=== PATIENT | female | born 1970 | race Caucasian/White ===

== ENCOUNTER → 2024-02-18 09:05 | Outpatient (REF) | payer BC, SELFPAY ==
[2024-02-18 10:25] LABS: % Basophils 0.9 % (0-2); % Immature Granulocytes 0.3 % (0-0.5); % Lymphocytes 24.5 % (20.5-51.1); % Monocytes 5.5 % (1.7-9.3); % Neutrophils 64.8 % (42.2-75.2); Absolute Basophils 0.1 10^3/uL (0-0.2); Absolute Eosinophils 0.3 10^3/uL (0-0.7); Absolute Lymphocytes 1.6 10^3/uL (1.2-3.4); Absolute Monocytes 0.4 10^3/uL (0.1-0.6); Absolute Neutrophils 4.3 10^3/uL (1.4-6.5); Hematocrit 41.5 % (37.0-47.0); Hemoglobin 13.7 g/dL (12.0-16.0); Mean Corpuscular Hgb 30.1 pg (27.0-31.0); Mean Corpuscular Volume 91.2 fL (81.0-99.0); Mean Platelet Volume 10.5 fL (7.4-10.4); Nucleated Red Blood Cells % 0 %; Platelet Count 246 10^3/uL (130-400); Red Blood Cell Count 4.55 10^6/uL (4.20-5.40); Red Cell Dist. Width 12.3 % (11.5-14.5); White Blood Cell Count 6.6 10^3/uL (4.8-10.8)
[2024-02-18 10:55] LABS: ALT (SGPT) 51 U/L (0-35); AST (SGOT) 33 U/L (14-36); Albumin 4.5 g/dl (3.5-5.0); Alkaline Phosphatase 68 U/L (38-126); Blood Urea Nitrogen 18 mg/dl (7-17); C-Reactive Protein < 5.00 mg/L (0.0-10.00); Calcium 9.3 mg/dl (8.4-10.2); Carbon Dioxide 26 mmol/L (22-30); Chloride 103 mmol/L (98-107); Glucose 89 mg/dl (70-99); HDL Cholesterol 99 mg/dl; LDL Cholesterol, Calculated 116 mg/dl; Potassium 4.4 mmol/L (3.5-5.1); Sodium 142 mmol/L (135-145); Total Bilirubin 0.5 mg/dl (0.2-1.3); Total Cholesterol 226 mg/dl (50-199); Total Protein 7.4 g/dl (6.3-8.2); Triglyceride 57 mg/dl (10-149); Very Low Density Lipoprotein 11 mg/dl (0-30); eGFR > 60.00
[2024-02-18 11:24] LABS: Erythrocyte Sed Rate 12 mm/hour (0-20)
[2024-02-18 11:25] LABS: TSH Reflex To Free T4 0.82 uIU/ml (0.47-4.68)
[2024-02-20 00:25] LABS: ANA, IgG Reflex to HEp-2 Detected (None Detected)
[2024-02-20 01:52] LABS: CCP Antibody IgG/IgA 4 Units (0-19)
== END ==
LOC: REG 09:05
PROVIDERS: ATTENDING PHYSICIAN Student in an Organized Health Care Education/Training Program
DX: M25.50 Pain in unspecified joint (principal); M79.10 Myalgia, unspecified site; Z76.89 Persons encountering health services in other specified circumstances; Z00.00 Encounter for general adult medical examination without abnormal findings; R04.0 Epistaxis; R63.5 Abnormal weight gain
CPT/HCPCS: 36415; 73130; 73630; 80053; 80061; 84443; 85025; 85652; 86038; 86140; 86200; 86430; 86618

== ENCOUNTER → 2024-03-08 13:56 | Outpatient (REF) | payer BC, SELFPAY | LOC: WDC 13:56 | PROVIDERS: ATTENDING PHYSICIAN Student in an Organized Health Care Education/Training Program | DX: Z12.31 Encounter for screening mammogram for malignant neoplasm of breast (principal) | CPT/HCPCS: 77063; 77067 ==

== ENCOUNTER → 2024-03-22 10:55 | Outpatient (REF) | payer BC, SELFPAY ==
[2024-03-22 12:15] LABS: Urine Albumin Negative (Neg - Trace); Urine Bilirubin Negative (Negative); Urine Character Clear (Clear); Urine Color Straw; Urine Glucose Negative (Negative); Urine Ketone Negative (Negative); Urine Leukocyte Negative (Negative); Urine Nitrite Negative (Negative); Urine Occult Blood 1+ (Negative); Urine Specific Gravity 1.005 (<1.030); Urine Urobilinogen Negative (Neg - 1+)
[2024-03-22 12:18] LABS: Urine Red Blood Cell 0-2 /HPF (0-2); Urine Squamous Cell 0-2 /LPF (Few); Urine White Cell 0-2 /HPF (0-5)
[2024-03-22 12:19] LABS: Erythrocyte Sed Rate 12 mm/hour (0-20)
[2024-03-22 12:33] LABS: C-Reactive Protein < 5.00 mg/L (0.0-10.00)
[2024-03-22 12:50] LABS: Protein/creatinine Ratio 0.9; Urine Protein 12 mg/dl; Vitamin D, 25-OH*** 39.9 ng/mL (30-80)
[2024-03-22 13:32] LABS: Creatine Phosphokinase 44 U/L (30-135)
[2024-03-24 00:14] LABS: Complement C3 128 mg/dl (88-165); IgA 269 mg/dl (70-400)
[2024-03-25 00:46] LABS: ds-DNA Ab, IgG Reflex To Titer 3 IU (0-24)
[2024-03-25 01:04] LABS: Endomysial IgA Antibody Titer <1:10 (<1:10)
[2024-03-25 01:17] LABS: ANA, IgG Reflex to HEp-2 Detected (None Detected)
[2024-03-25 01:21] LABS: Myeloperoxidase Antibody 0 AU/mL (0-19); Serine Protease-3, IgG 1 AU/mL (0-19)
[2024-03-25 01:27] LABS: Smith/RNP (ENA), IgG 3 Units (0-19)
[2024-03-25 01:38] LABS: Beta-2-Glycoprotein I Ab. IgG 29 SGU (<=20); Beta-2-Glycoprotein I Ab. IgM <10 SMU (<=20)
[2024-03-25 01:48] LABS: SSA 52 (Ro)(ENA) Ab, IgG 2 AU/mL (0-40); SSA 60 (Ro)(ENA) Ab, IgG 0 AU/mL (0-40); SSB (La)(ENA) Ab, IgG 0 AU/mL (0-40); Smith (ENA) Antibody, IgG 2 AU/mL (0-40)
[2024-03-25 10:08] LABS: Cardiolipin IgA Antibody <10 APL (<=11); Cardiolipin IgM Antibody <10 MPL (<=12); Cardiolipin Igg Antibody <10 GPL (<=14)
== END ==
LOC: REG 10:55
PROVIDERS: ATTENDING PHYSICIAN Internal Medicine Rheumatology; FAMILY PHYSICIAN Student in an Organized Health Care Education/Training Program
DX: E55.9 Vitamin D deficiency, unspecified (principal); K06.8 Other specified disorders of gingiva and edentulous alveolar ridge; K90.0 Celiac disease; M35.9 Systemic involvement of connective tissue, unspecified; M79.10 Myalgia, unspecified site; R76.8 Other specified abnormal immunological findings in serum
CPT/HCPCS: 36415; 81003; 81015; 82306; 82550; 82570; 82784; 83516; 84156; 85610; 85613; 85652; 85730; 86038; 86140; 86146; 86147; 86160; 86225; 86231; 86235

== ENCOUNTER → 2024-04-28 13:20 | Outpatient (REF) | payer BC, SELFPAY ==
[2024-05-13 05:04] LABS: HPV, High Risk Not Detected; HPV, High Risk Source Cervical
== END ==
LOC: CPAP 13:20
PROVIDERS: ATTENDING PHYSICIAN Obstetrics & Gynecology Gynecology
DX: Z01.419 Encounter for gynecological examination (general) (routine) without abnormal findings (principal)
CPT/HCPCS: 87624